=== PATIENT | female | born 1970 | race Native Hawaiian/Other Pacific Islander ===

== ENCOUNTER 2017-04-07 10:10 | Emergency (ER) | payer OTHER ==
[~2017-04-07] VITALS: Ht 172.7 cm; Wt 86.0 kg
[2017-04-07 10:19] VITALS: BP 126/68; PULSE 118; RESP 16; TEMP 99.4; O2SAT 99
[2017-04-07] MEDS ORDERED: SODIUM CHLOR 0.9% 1000 ML INJ 1,000 ML IV SCH ×2 (10:30→12:28)
[2017-04-07] MEDS ORDERED: SODIUM CHLORIDE 0.9% FLUSH 10 ML FLUSH IV FLUSH PRN (10:30)
[2017-04-07] MEDS ORDERED: ONDANSETRON HCL 4 MG/2 ML VIAL IVP ONE (10:30)
[2017-04-07] MEDS ORDERED: LAMO25TA PO (10:34)
[2017-04-07] MEDS ORDERED: LEXA10TA PO (10:34)
[2017-04-07 10:43] VITALS: PULSE 104; RESP 18; O2SAT 98
[2017-04-07 10:45] LABS: BILIRUBIN, URINE NEG (NEG); BLOOD, URINE MOD (NEG); GLUCOSE,URINE NEG (NEG); KETONE, URINE 15 mg/dL (NEG); NITRITE,URINE NEG (NEG); PH, URINE 5.5 (5.0-8.5); URINE COLOR YELLOW (YELLW/STRAW); URINE LEUKOCYTE ESTERASE NEG (NEG)
[2017-04-07 10:50] LABS: BACTERIA, URINE FEW /hpf; RBC, URINE 15-19 /hpf (0-3); WBC, URINE 0-2 /hpf (0-5)
[2017-04-07 10:50] LABS: AUTOMATED NEUTROPHIL # 8.4 TH/MM3 (1.8-7.7); BASOPHIL # 0.1 TH/MM3 (0-0.2); BASOPHIL % 1.2 % (0.0-2.0); EOSINOPHIL % 0.1 % (0.0-4.0); HEMATOCRIT 41.2 % (35.0-46.0); HEMOGLOBIN 13.8 GM/DL (11.6-15.3); LYMPH % 4.5 % (9.0-44.0); LYMPHOCYTE # 0.4 TH/MM3 (1.0-4.8); MEAN CELL VOLUME 88.1 FL (80.0-100.0); MEAN CORPUSCULAR HEMOGLOBIN 29.5 PG (27.0-34.0); MEAN CORPUSCULAR HGB CONC 33.5 % (32.0-36.0); MEAN PLATELET VOLUME 8.2 FL (7.0-11.0); MONO % 5.1 % (0.0-8.0); MONOCYTE # 0.5 TH/MM3 (0-0.9); NEUT % 89.1 % (16.0-70.0); PLATELET COUNT 286 TH/MM3 (150-450); RED BLOOD COUNT 4.67 MIL/MM3 (4.00-5.30); WHITE BLOOD COUNT 9.4 TH/MM3 (4.0-11.0)
[2017-04-07 10:59] LABS: CHLORIDE 103 MEQ/L (98-107); SODIUM (NA) 136 MEQ/L (136-145)
[2017-04-07 11:02] LABS: CALCIUM 8.3 MG/DL (8.5-10.1)
[2017-04-07 11:03] LABS: ALBUMIN 3.1 GM/DL (3.4-5.0); BICARBONATE 23.9 MEQ/L (21.0-32.0); BLOOD UREA NITROGEN 8 MG/DL (7-18); GLUCOSE,RANDOM 92 MG/DL (74-106)
[2017-04-07 11:05] LABS: ALT (GPT) 17 U/L (10-53)
--- NOTE | 2017-04-07 11:05 | PD ---
HPI Chief Complaint: GI Complaint Time Seen by Provider: 10:22 Travel History International Travel<30 days: No Contact w/Intl Traveler<30days: No Traveled to known affect area: No History of Present Illness HPI Patient was seen and examined in the presence of a nurse at all times This is a 46-year-old female who presents for vomiting and diarrhea. She states that after lunch yesterday around 2 PM, she developed multiple episodes of nonbilious, nonbloody emesis and diarrhea. She has crampy lower abdominal pain. No fever, chills, cough, congestion. No urinary urgency, frequency, dysuria, hematuria. She states that after multiple episodes of vomiting and diarrhea, she feels very dehydrated, lightheaded and has a mild frontal headache. It came on gradually and did not reach maximum intensity rapidly. This is not the worst headache of her life. No focal weakness, numbness, tingling. No neck pain or stiffness. Symptoms are moderate in severity. Onset gradual. She tried taking aspirin without relief. Aggravated by attempting to eat or drink. PFSH Past Medical History Depression: Yes Headaches: Yes Migraines: Yes Influenza Vaccination: No ?: Not LMP: 03/2017 Past Surgical History Surgical History: No Previous Surgery Social History Alcohol Use: Yes Tobacco Use: No Substance Use: No Allergies-Medications (Allergen,Severity, Reaction): Coded Allergies: No Known Allergies (Unverified , 04/07/17) Reported Meds & Prescriptions Reported Meds & Active Scripts Active Bentyl (Dicyclomine HCl) 10 Mg Cap 10 Mg PO TID PRN Zofran Odt (Ondansetron Odt) 4 Mg Tab 4 Mg SL Q8HR PRN Reported Lexapro (Escitalopram Oxalate) 10 Mg Tab 10 Mg PO HS Lamotrigine 25 Mg Tab 75 Mg PO HS Review of Systems Except as stated in HPI: all other systems reviewed are Neg Physical Exam Narrative GENERAL: Alert, well nourished, well appearing patient resting on the bed in no acute distress. Vital Signs reviewed SKIN: Focused skin assessment warm/dry. HEAD: Atraumatic. Normocephalic. EYES: Pupils equal and round. No scleral icterus. No injection or drainage. ENT: No nasal bleeding or discharge. Mucous membranes pink and moist. NECK: Trachea midline. No JVD. Spontaneous, painless full range of motion with no meningismus CARDIOVASCULAR: Regular rate and rhythm. No murmur appreciated. Extremities warm and well perfused with bounding peripheral pulses RESPIRATORY: No accessory muscle use. Clear to auscultation. Breath sounds equal bilaterally. Breathing easily and speaking in full sentences GASTROINTESTINAL: Abdomen soft, tender in suprapubic region, nondistended. Normal bowel sounds. No rigid, rebound, guarding. No CVA tenderness MUSCULOSKELETAL: No obvious deformities. No clubbing. No cyanosis. No edema. Compartments are soft NEUROLOGICAL: Awake and alert. No obvious cranial nerve deficits. Motor grossly within normal limits. Normal speech. Sensation intact. Normal gait Data Data Last Documented VS Vital Signs Date Time Temp Pulse Resp B/P (MAP) Pulse Ox O2 Delivery O2 Flow Rate FiO2 04/07/17 12:14 99 18 118/68 (85) 98 Room Air 04/07/17 10:19 99.4 Orders Orders Complete Blood Count With Diff (04/07/17 10:30) Comprehensive Metabolic Panel (04/07/17 10:30) Lipase (04/07/17 10:30) Urinalysis - C+S If Indicated (04/07/17 10:30) Ct Abd/Pel W Iv Contrast(Rout) (04/07/17 10:30) Iv Access Insert/Monitor (04/07/17 10:30) Ecg Monitoring (04/07/17 10:30) Oximetry (04/07/17 10:30) Ondansetron Inj (Zofran Inj) (04/07/17 10:30) Sodium Chlor 0.9% 1000 Ml Inj (Ns 1000 M (04/07/17 10:30) Sodium Chloride 0.9% Flush (Ns Flush) (04/07/17 10:30) Ed Urine Pregnancytest Poc (04/07/17 10:30) Ketorolac Inj (Toradol Inj) (04/07/17 11:15) Iohexol 350 Inj (Omnipaque 350 Inj) (04/07/17 12:07) Sodium Chlor 0.9% 1000 Ml Inj (Ns 1000 M (04/07/17 12:28) Labs Laboratory Tests Test 04/07/17 10:30 04/07/17 10:35 Urine Collection Type CLEAN CATCH Urine Color YELLOW Urine Turbidity CLEAR Urine pH 5.5 Urine Specific [place] 1.025 Urine Protein TRACE mg/dL Urine Glucose (UA) NEG mg/dL Urine Ketones 15 mg/dL Urine Occult Blood MOD Urine Nitrite NEG Urine Bilirubin NEG Urine Urobilinogen 0.2 MG/DL Urine Leukocyte Esterase NEG Urine RBC 15-19 /hpf Urine WBC 0-2 /hpf Urine Squamous Epithelial Cells 6-8 /hpf Urine Bacteria FEW /hpf Microscopic Urinalysis Comment CULT NOT INDICATED Urine Collection Time 10:30 White Blood Count 9.4 TH/MM3 Red Blood Count 4.67 MIL/MM3 Hemoglobin 13.8 GM/DL Hematocrit 41.2 % Mean Corpuscular Volume 88.1 FL Mean Corpuscular Hemoglobin 29.5 PG Mean Corpuscular Hemoglobin Concent 33.5 % Red Cell Distribution Width 12.0 % Platelet Count 286 TH/MM3 Mean Platelet Volume 8.2 FL Neutrophils (%) (Auto) 89.1 % Lymphocytes (%) (Auto) 4.5 % Monocytes (%) (Auto) 5.1 % Eosinophils (%) (Auto) 0.1 % Basophils (%) (Auto) 1.2 % Neutrophils # (Auto) 8.4 TH/MM3 Lymphocytes # (Auto) 0.4 TH/MM3 Monocytes # (Auto) 0.5 TH/MM3 Eosinophils # (Auto) 0.0 TH/MM3 Basophils # (Auto) 0.1 TH/MM3 CBC Comment DIFF FINAL Differential Comment Blood Urea Nitrogen 8 MG/DL Creatinine 1.10 MG/DL Random Glucose 92 MG/DL Total Protein 7.3 GM/DL Albumin 3.1 GM/DL Calcium Level 8.3 MG/DL Alkaline Phosphatase 55 U/L Aspartate Amino Transf (AST/SGOT) 18 U/L Alanine Aminotransferase (ALT/SGPT) 17 U/L Total Bilirubin 0.3 MG/DL Sodium Level 136 MEQ/L Potassium Level 3.4 MEQ/L Chloride Level 103 MEQ/L Carbon Dioxide Level 23.9 MEQ/L Anion Gap 9 MEQ/L Estimat Glomerular Filtration Rate 53 ML/MIN Lipase 105 U/L [facility] Medical Decision Making Medical Screen Exam Complete: Yes Emergency Medical Condition: Yes Medical Record Reviewed: Yes Interpretation(s) Laboratory Tests Test 04/07/17 10:30 04/07/17 10:35 Urine Collection Type CLEAN CATCH Urine Color YELLOW Urine Turbidity CLEAR Urine pH 5.5 Urine Specific [place] 1.025 Urine Protein TRACE mg/dL Urine Glucose (UA) NEG mg/dL Urine Ketones 15 mg/dL Urine Occult Blood MOD Urine Nitrite NEG Urine Bilirubin NEG Urine Urobilinogen 0.2 MG/DL Urine Leukocyte Esterase NEG Urine RBC 15-19 /hpf Urine WBC 0-2 /hpf Urine Squamous Epithelial Cells 6-8 /hpf Urine Bacteria FEW /hpf Microscopic Urinalysis Comment CULT NOT INDICATED Urine Collection Time 10:30 White Blood Count 9.4 TH/MM3 Red Blood Count 4.67 MIL/MM3 Hemoglobin 13.8 GM/DL Hematocrit 41.2 % Mean Corpuscular Volume 88.1 FL Mean Corpuscular Hemoglobin 29.5 PG Mean Corpuscular Hemoglobin Concent 33.5 % Red Cell Distribution Width 12.0 % Platelet Count 286 TH/MM3 Mean Platelet Volume 8.2 FL Neutrophils (%) (Auto) 89.1 % Lymphocytes (%) (Auto) 4.5 % Monocytes (%) (Auto) 5.1 % Eosinophils (%) (Auto) 0.1 % Basophils (%) (Auto) 1.2 % Neutrophils # (Auto) 8.4 TH/MM3 Lymphocytes # (Auto) 0.4 TH/MM3 Monocytes # (Auto) 0.5 TH/MM3 Eosinophils # (Auto) 0.0 TH/MM3 Basophils # (Auto) 0.1 TH/MM3 CBC Comment DIFF FINAL Differential Comment Blood Urea Nitrogen 8 MG/DL Creatinine 1.10 MG/DL Random Glucose 92 MG/DL Total Protein 7.3 GM/DL Albumin 3.1 GM/DL Calcium Level 8.3 MG/DL Alkaline Phosphatase 55 U/L Aspartate Amino Transf (AST/SGOT) 18 U/L Alanine Aminotransferase (ALT/SGPT) 17 U/L Total Bilirubin 0.3 MG/DL Sodium Level 136 MEQ/L Potassium Level 3.4 MEQ/L Chloride Level 103 MEQ/L Carbon Dioxide Level 23.9 MEQ/L Anion Gap 9 MEQ/L Estimat Glomerular Filtration Rate 53 ML/MIN Lipase 105 U/L Last 24 hours Impressions Abdomen/Pelvis CT 04/07/17 1030 Signed Impressions: Service Date/Time: Friday, April 07, 2017 12:00 - CONCLUSION: 1. No acute findings within the abdomen and pelvis. Probable 4.3 cm fibroid in the posterior uterus. No obstruction, free fluid or free air. Mild fatty liver. Mike Mayo MD Differential Diagnosis Gastroenteritis, gastritis, foodborne illness, UTI, , appendicitis, diverticulitis less likely, dehydration Narrative Course IV access was established. Labs, imaging were performed. Patient was given 2 L normal saline bolus, Zofran and Toradol. She had resolution of headache and abdominal pain. She felt much better. No further nausea. Upon reexamination at 12:50 PM: She is resting comfortably on the bed in no acute distress. She is drinking fluids without difficulty. I reviewed the results of the workup with her. We discussed plan for discharge with supportive care, Zofran for nausea, Bentyl for abdominal cramping and close outpatient follow-up. Patient understands the importance of close outpatient follow-up. She understands she may require further testing and treatment as an outpatient. She understands strict return indications. She is comfortable with this plan and eager to go home. Diagnosis Primary Impression: Acute gastroenteritis Referrals: Primary Care Physician 3 days Patient Instructions: Gastroenteritis (ED), General Instructions Additional Instructions: Drink plenty of fluids to stay well hydrated. Advance your diet slowly. Use Zofran for nausea. Use Bentyl for abdominal cramping. Follow-up with primary physician in 3 days for recheck. Return with worsening symptoms. Med/Other Pt SpecificInfo: Prescription(s) given Scripts Dicyclomine (Bentyl) 10 Mg Cap 10 MG PO TID Y for ABDOMINAL CRAMPING, #12 CAP 0 Refills Prov: Malini English MD 04/07/17 Ondansetron Odt (Zofran Odt) 4 Mg Tab 4 MG SL Q8HR Y for Nausea/Vomiting, #12 TAB 0 Refills Prov: Malini English MD 04/07/17 Disposition: 01 DISCHARGE HOME Condition: Stable Malini English MD Apr 07, 2017 11:05
[2017-04-07 11:06] LABS: AST (GOT) 18 U/L (15-37); GLOMERULAR FILTRATION RATE 53 ML/MIN (>89)
[2017-04-07 11:07] LABS: TOTAL BILIRUBIN ADULT 0.3 MG/DL (0.2-1.0); TOTAL PROTEIN 7.3 GM/DL (6.4-8.2)
[2017-04-07 11:08] LABS: ALKALINE PHOSPHATASE 55 U/L (45-117)
[2017-04-07] MEDS ORDERED: KETOROLAC TROMETHAMINE 30 MG/ML (IVP) VIAL IV PUSH ONE (11:15)
[2017-04-07 11:46] VITALS: RESP 18
[2017-04-07] MEDS ORDERED: IOHEXOL 350 MG/ML 10 ML VIAL (for RAD DIAG) IVCONTRAST ONE (12:07)
[2017-04-07 12:14] VITALS: BP 118/68; O2SAT 98
--- NOTE | 2017-04-07 12:23 | RADRPT ---
EXAM DATE/TIME: 04/07/2017 12:00 [facility] COMPARISON: No previous studies available for comparison. INDICATIONS : Diffuse abdominal pain, nausea, vomiting and diarrhea since yesterday. IV CONTRAST: 85 cc Omnipaque 350 (iohexol) IV ORAL CONTRAST: No oral contrast ingested. RADIATION DOSE: 10.94 CTDIvol (mGy) MEDICAL HISTORY : None SURGICAL HISTORY : None. ENCOUNTER: Initial ACUITY: 1 day PAIN SCALE: 2/10 LOCATION: Diffuse abdomen. TECHNIQUE: Volumetric scanning of the abdomen and pelvis was performed. Using automated exposure control and ad justment of the mA and/or kV according to patient size, radiation dose was kept as low as reasonably achievable to obtain optimal diagnostic quality images. DICOM format image data is available electro nically for review and comparison. FINDINGS: Mild dependent atelectasis in the lungs. No acute findings in the liver, spleen, adrenals, kidneys or pancreas. No calcified gallstones or jonel iary ductal dilatation. There is an exophytic 4.3 cm mass extending off the posterior uterus most characteristic of a fibroid . No other adnexal mass or free fluid. CONCLUSION: 1. No acute findings within the abdomen and pelvis. Probable 4.3 cm fibroid in the posterior uterus. No obstruction, free fluid or free air. Mild fatty liver. Mike Mayo MD on April 07, 2017 at 12:14 Board Certified Radiologist. This report was verified electronically.
[2017-04-07] MEDS ORDERED: DICY10 PO (13:02)
[2017-04-07] MEDS ORDERED: ZOFR4TAB3 SL (13:02)
== END 2017-04-07 13:52 | disposition home or self-care (01) ==
LOC: PHED 10:10
DX: K52.9 Noninfective gastroenteritis and colitis, unspecified (principal)
CPT/HCPCS: 74177; 80053; 81001; 83690; 84703; 85025; 96361; 96374; 96375; 99284; J1885; J2405; J7030; Q9967